=== PATIENT | male | born 1970 | race Caucasian/White ===

== ENCOUNTER 2024-10-20 09:02 | Day surgery (SDC) | payer BC ==
[~2024-10-20] VITALS: Ht 165.1 cm; Wt 77.3 kg
[2024-10-20] MEDS ORDERED: LIDOCAINE 2% 100 MG/5 ML SDV (FOR ANES.) As Ordered ONE (10:28)
[2024-10-20 10:45] VITALS: TEMP 98.7
[2024-10-20 11:06] VITALS: BP 148/76; O2SAT 97
== END 2024-10-20 11:18 | disposition home or self-care (01) ==
LOC: M OPP 09:02
PROVIDERS: ATTEND Internal Medicine Gastroenterology
DX: Z12.11 Encounter for screening for malignant neoplasm of colon (principal); K64.0 First degree hemorrhoids